=== PATIENT | male | born 1955 | race Caucasian/White ===

== ENCOUNTER 2016-07-31 13:48 | Emergency (ER) | payer OTHER ==
[~2016-07-31] VITALS: Ht 177.8 cm; Wt 81.6 kg
[~2016-07-31 13:48] MED LIST: ATENOLOL PO; ATORVASTATIN CA20 M1 PO; CELEXA20 MG PO; CHLORDIAZEPOXID10 M2 PO; GLUCOPHAGE1000 MG PO; GLUCOTROL5 MG PO; JARDIANCE25 MG PO; JENTADUETO 2.51 EAC2 PO; LANTUS100 U/ML SC; LYRICA50 MG PO; NALTREXONE50 MG PO; NEXIUM40 MG PO; PROZAC20 MG PO; TENORMIN50 MG PO; VICODIN ES 7501 TAB PO; ZESTRIL40 MG PO; [UNRECOGNIZED DRUG - OTHER] PO
[2016-07-31] MEDS ORDERED: PANTOPRAZOLE SO40 MG PO (14:17)
[2016-07-31] MEDS ORDERED: LYRICA50 M1 PO (14:18)
[2016-07-31 15:07] LABS: BASO # 0.1 10*3/uL (0.0-0.1); BASO % 0.3 % (0.0-1.0); EOS # 0.4 10*3/uL (0.0-0.4); EOS % 2.4 % (1.0-4.0); HEMATOCRIT 47.4 % (42.0-52.0); HEMOGLOBIN 16.1 g/dl (14.0-18.0); IG # 0.1 10*3/uL (0.0-0.1); LYMPH # 1.9 10*3/uL (1.3-4.4); LYMPH % 13.3 % (27.0-41.0); MEAN CORPUSCULAR HGB 29.5 pg (27.0-31.0); MEAN PLATELET VOLUME 10.4 fl (9.6-12.3); MONO % 6.7 % (3.0-9.0); NEUT # 11.2 10*3/uL (2.3-7.9); PLATELET COUNT AUTOMATED 275 10*3/uL (130-400); RED BLOOD COUNT 5.45 10*6/uL (4.50-5.90); RED CELL DISTRI WIDTH 13.5 % (0-14.5); WHITE BLOOD COUNT 14.5 10*3/uL (4.8-10.8)
[2016-07-31 15:24] LABS: ALBUMIN 4.1 gm/dl (3.1-4.5); ALKALINE PHOSPHATASE 109 U/L (45-117); BILIRUBIN, TOTAL 0.5 mg/dl (0.2-1.0); BUN 26 mg/dl (7-24); CARBON DIOXIDE 30 mmol/L (21-32); CHLORIDE 98 mmol/L (98-107); EST GLOM FILT AFRICAN AMERICAN > 60 ml/min; GLUCOSE 86 mg/dL (65-99); POTASSIUM 3.5 mmol/L (3.5-5.1); SGOT/AST 20 IU/L (3-35); SGPT/ALT 29 U/L (12-78); SODIUM 139 mmol/L (136-145); TOTAL PROTEIN 8.3 gm/dL (6.4-8.2)
[2016-07-31] MEDS ORDERED: CLINDAMYCIN HC300 MG PO (15:54)
[2016-07-31] MEDS ORDERED: PERCOCET 325 MG1 TA2 PO (15:54)
== END 2016-07-31 16:05 | disposition home or self-care (01) ==
LOC: ED 13:48
PROVIDERS: Physician Assistant
DX: L03.116 Cellulitis of left lower limb (principal); M25.572 Pain in left ankle and joints of left foot; Z79.899 Other long term (current) drug therapy; Z79.4 Long term (current) use of insulin; Z98.890 Other specified postprocedural states

== ENCOUNTER 2016-11-22 09:36 | Inpatient (IN) | payer OTHER ==
[~2016-11-22] VITALS: Ht 177.8 cm; Wt 83.1 kg
--- NOTE | ~2016-11-22 | CON ---
[place], [place] REPORT OF CONSULTATION NAME: CARLIN THOMAS JR [facility] #: [id number] UNIT #: [id number] ROOM: [place] [address] DOCTOR: TEO GALAVIZJOSSE BIRTHDATE: [birth year] DOS: 11/24/2016 SUBJECTIVE: This patient is seen as consulted for evaluation of a left posterior heel wound. Apparently, the patient had a ruptured Achilles tendon last year, underwent surgery for Achilles tendon repair. He subsequently had MRSA infection and needed further debridement and has needed long-term wound care. He sees a bi tri operator in [place] and apparently she has been doing and a wound VAC. He states he thinks his Achilles area is doing well. He states right now he is not feeling well in the room because his blood pressure is low. PAST MEDICAL HISTORY: Positive for Achilles tendon rupture; chronic wound, left posterior heel; depression; esophageal stricture; gastroesophageal reflux disease; hypertension; hyperlipidemia; insulin-dependent diabetes mellitus; and MRSA cellulitis. ALLERGIES: No known allergies. MEDICATIONS: Include Subutex, Librium, thiamine, Lyrica, Zestril, Trajenta, folic acid, Prozac, Lovenox, Lipitor, Tenormin, Protonix, Glucophage, Desyrel, Ativan. PHYSICAL EXAMINATION: Upon lower extremity physical examination, pedal pulses are palpable. CFT is less than 2 seconds to all digits. Skin temperature is warm. Sensation appears diminished in both lower extremities. Negative Lam sign is noted. On the left side, Achilles tendon appears to be grossly intact. Stiffness noted with range of motion. There is a wound noted at the left posterior heel in the area of the Achilles that is essentially partial thickness. It is about 4 cm in length and about 0.2 cm in width, may be 0.1 cm in depth. There is no edema or erythema, no drainage or malodor. The wound is dry and clean, with no signs of infections. No signs of cellulitis or abscess. ASSESSMENT: Chronic left posterior heel wounds and diabetes. PLAN: Consult is performed. We just recommend Adaptic and dry dressing to the wound at this time daily, that was discussed with the nurse. Offload the area and will follow him up as needed. The wound is stable with no infection. If there is any further need for us to see him, please let us know. If not, upon discharge, he will follow up with his regular bi tri operator. Thank you for the opportunity to take part in care of this patient. [place], [place] REPORT OF CONSULTATION NAME: MARTHA CARLIN MADRIGAL UNIT #: [id number] ROOM: [place] [address] DOCTOR: JOSSE BRUCE DPM BIRTHDATE: [birth year] JOSSE BRUCE DPM CM:CONSTR:REPORT OF CONSULTATION 1211 11/24/16 1416 interface
--- NOTE | ~2016-11-22 | CON ---
[place], [place] REPORT OF CONSULTATION NAME: CARLIN THOMAS JR UNIT #: [id number] ROOM: [place] [address] DOCTOR: CLARIBEL WALL MD BIRTHDATE: [birth year] DOS: 11/24/2016 GASTROENDOSCOPIC REPORT. HISTORY OF PRESENT ILLNESS: This is a 61-year-old patient who has presented with chief complaint of drug and alcohol issues and pain management and meanwhile, he has chronic esophageal stricture that has been repeatedly managed in [place]. He has been complaining of dysphagia, he tried a piece of hot dog today, he had difficulty. He had to induce his own emesis. Apparently, according to his and himself, this is very common for him that he has to induce emesis to get rid of solid particles at times. He was tried on ice cream and he had no difficulty. His labs and records reviewed. BUN and creatinine normal. Electrolytes, potassium was addressed. AST 60, ALT of 64 corresponding with his ETOH consumption. His urine culture, no growth. His CBC differential, white blood cell remains normal. H and H of 14 and 42. Chest x-ray was obtained today, either atelectasis or infiltrate in lung cannot be ruled out. BUN and creatinine 41 and 2.2 with GFR of 36. Electrolytes normalized. PAST MEDICAL HISTORY: Associated with esophageal stricture; depression; Achilles tendon rupture, on pain medication; hypertension; hyperlipidemia; diabetes mellitus; GERD. PAST SURGICAL HISTORY: Recurrent dilation of the esophagus, ____. SOCIAL HISTORY: Has stopped smoking several years ago; however, he continues with his alcohol habit and marijuana usage. FAMILY HISTORY: Diabetes. ALLERGIES: No known medications. MEDICATIONS: Medication list has been reviewed. REVIEW OF SYSTEMS: HEENT: Denies double vision, blurred vision. RESPIRATORY: Denies acute shortness of breath; however, has some cough. CARDIOVASCULAR: Denies chest pain. DIGESTIVE SYSTEM: Esophageal stricture and recurrent dilation. PHYSICAL EXAMINATION: VITAL SIGNS: Stable, in ICU, conversing. HEENT: Head normocephalic, nontraumatic. Mouth and buccal mucosa benign. NECK: Supple, no thyromegaly, no cervical lymphadenopathy. CHEST: Symmetric anatomy, equal expansion. No wheeze, no rhonchi at the present time. HEART: Normal sinus rhythm, no gallop, no murmur. ABDOMEN: Obese, soft. No hepato-organomegaly. Bowel sounds present. EXTREMITIES: Left ankle joint and tendons are in bandage and wrappings. [place], [place] REPORT OF CONSULTATION NAME: CARLIN THOMAS JR UNIT #: [id number] ROOM: [place] [address] DOCTOR: CLARIBEL WALL MD BIRTHDATE: [birth year] NEUROLOGIC: Appears to be alert and oriented. IMPRESSION: Chronic esophageal stricture and dysphagia to extreme solid food, status post recurrent dilation and foreign body entrapment, which has been managed in [place], history of diabetes mellitus, renal insufficiency, hypertension, hyperlipidemia, alcohol dependency and depression, all has been recognized. PLAN AND DISCUSSION: To keep on mechanical soft diet, ice cream, milk shake and consistency as such. As far as the infiltration that has been found in the lungs, clindamycin has been started; however, he does not have leukocytosis; therefore, we should favor also possibility of atelectasis to be the cause of that, suspected infiltrates in the benefit of preventing antibiotic complications. We are going to get a CT scan of the chest to make sure this is not pneumonia. If it is pneumonia, we will continue with antibiotics; it is atelectasis, we will discontinue antibiotic, so that we do not end up with clindamycin toxicity and C. diff complications as such. As far as his esophagus, dysphagia is concerned, he can follow as outpatient and as long as he stays on a pureed diet and soft diet. CLARIBEL WALL MD CM:CONSTR:REPORT OF CONSULTATION 1750 11/25/16 0325 interface
[~2016-11-22 09:36] MED LIST changes: +CLINDAMYCIN HC300 MG PO; +LYRICA50 M1 PO; +PANTOPRAZOLE SO40 MG PO; +PERCOCET 325 MG1 TA2 PO
[2016-11-22] MEDS ORDERED: LIPITOR20 MG PO (11:40)
[2016-11-22] MEDS ORDERED: FLUOXETINE40 MG PO (11:46)
[2016-11-22] MEDS ORDERED: JARDIANCE25 MG PO (11:51)
[2016-11-22] MEDS ORDERED: LANTUS100 U/ML SC ×2 (11:57→12:02)
[2016-11-22 12:00] VITALS: BP 143/76
[2016-11-22 12:13] LABS: BASO % 0.1 % (0.0-1.0); HEMATOCRIT 45.9 % (42.0-52.0); HEMOGLOBIN 16.2 g/dl (14.0-18.0); LYMPH # 1.4 10*3/uL (1.3-4.4); LYMPH % 17.4 % (27.0-41.0); MEAN CELL VOLUME 87.3 fl (80.0-94.0); MEAN CORPUSCULAR HGB 30.8 pg (27.0-31.0); MEAN CORPUSCULAR HGB CONC 35.3 g/dl (33.0-37.0); MEAN PLATELET VOLUME 9.6 fl (9.6-12.3); MONO # 0.9 10*3/uL (0.1-1.0); MONO % 11.3 % (3.0-9.0); NEUT # 5.8 10*3/uL (2.3-7.9); PLATELET COUNT AUTOMATED 224 10*3/uL (130-400); RED BLOOD COUNT 5.26 10*6/uL (4.50-5.90); RED CELL DISTRI WIDTH 14.6 % (0-14.5); WHITE BLOOD COUNT 8.2 10*3/uL (4.8-10.8)
[2016-11-22 12:21] LABS: INTERNATIONAL NORM RATIO 1.1 (2.0-3.5); PROTHROMBIN TIME 11.2 SECONDS (9.0-12.4)
[2016-11-22 12:22] LABS: URINE AMPHETAMINES < 1000 (1000ng/ml); URINE BARBITURATES < 200 (200ng/ml); URINE COCAINE < 300 (300ng/ml)
[2016-11-22 12:29] LABS: ALBUMIN 3.7 gm/dl (3.1-4.5); ALKALINE PHOSPHATASE 111 U/L (45-117); BILIRUBIN, TOTAL 1.6 mg/dl (0.2-1.0); BUN 26 mg/dl (7-24); CARBON DIOXIDE 26 mmol/L (21-32); CHLORIDE 93 mmol/L (98-107); EST GLOM FILT AFRICAN AMERICAN > 60 ml/min; GLUCOSE 242 mg/dL (65-99); SGOT/AST 60 IU/L (3-35); SGPT/ALT 64 U/L (12-78); SODIUM 133 mmol/L (136-145); TOTAL PROTEIN 7.9 gm/dL (6.4-8.2)
[2016-11-22 12:29] LABS: BILIRUBIN 2+ (NEGATIVE); BLOOD 1+ (NEGATIVE); CLARITY CLEAR (CLEAR); COLOR YELLOW (YELLOW); GLUCOSE 2+ (NEGATIVE); KETONE 3+ (NEGATIVE); LEUKO ESTERASE NEGATIVE (NEGATIVE); NITRITE NEGATIVE (NEGATIVE); PROTEIN 2+ (NEGATIVE); SPECIFIC GRAVITY 1.015 (1.005-1.030)
[2016-11-22 12:56] LABS: URINE REFLEX COMMENT YES (NO)
[2016-11-22] MEDS ORDERED: REGRANEX 0.01% T (14:55)
[2016-11-22 16:00] VITALS: BP 170/93
[2016-11-22 20:00] VITALS: BP 141/86
[2016-11-23] VITALS: BP 114/67
[2016-11-23 04:00] VITALS: BP 116/62
[2016-11-23 08:00] VITALS: BP 106/66
[2016-11-23 12:00] VITALS: BP 96/59
[2016-11-23 16:00] VITALS: BP 78/60
[2016-11-23 20:00] VITALS: BP 83/62
[2016-11-24] VITALS (20 sets, daily range): BP systolic 74–123; BP diastolic 42–92
[2016-11-24 12:33] LABS: ABG BASE EXCESS 0.3 mmol/L (-2.0-2.0); ABG CO2 CONTENT 28.3 mmol/L (23-27); ABG HCO3 26.7 mmol/l (22-26); ABG TEMPERATURE 97.2 F (98.0-99.0); ARTERIAL BLOOD GAS PH 7.338 (7.35-7.45); ARTERIAL BLOOD GAS PO2 49.3 mmHg (80-90)
[2016-11-24 16:20] LABS: BASO % 0.4 % (0.0-1.0); EOS # 0.2 10*3/uL (0.0-0.4); EOS % 2.9 % (1.0-4.0); HEMATOCRIT 42.6 % (42.0-52.0); HEMOGLOBIN 14.5 g/dl (14.0-18.0); LYMPH # 1.7 10*3/uL (1.3-4.4); LYMPH % 20.1 % (27.0-41.0); MEAN CELL VOLUME 91.8 fl (80.0-94.0); MEAN CORPUSCULAR HGB 31.3 pg (27.0-31.0); MEAN PLATELET VOLUME 9.9 fl (9.6-12.3); MONO # 0.7 10*3/uL (0.1-1.0); MONO % 8.4 % (3.0-9.0); NEUT # 5.6 10*3/uL (2.3-7.9); NEUT % 67.8 % (47.0-73.0); PLATELET COUNT AUTOMATED 174 10*3/uL (130-400); RED BLOOD COUNT 4.64 10*6/uL (4.50-5.90); RED CELL DISTRI WIDTH 14.2 % (0-14.5); WHITE BLOOD COUNT 8.3 10*3/uL (4.8-10.8)
[2016-11-24 16:50] LABS: ALBUMIN 3.4 gm/dl (3.1-4.5); BILIRUBIN, TOTAL 0.5 mg/dl (0.2-1.0); POTASSIUM 3.9 mmol/L (3.5-5.1); TOTAL PROTEIN 7.1 gm/dL (6.4-8.2)
[2016-11-25] VITALS (7 sets, daily range): BP systolic 97–127; BP diastolic 53–73
[2016-11-25 04:56] LABS: BASO % 0.4 % (0.0-1.0); EOS # 0.3 10*3/uL (0.0-0.4); EOS % 3.8 % (1.0-4.0); HEMOGLOBIN 12.9 g/dl (14.0-18.0); LYMPH # 1.9 10*3/uL (1.3-4.4); LYMPH % 26.8 % (27.0-41.0); MEAN CELL VOLUME 91.6 fl (80.0-94.0); MEAN CORPUSCULAR HGB 31.1 pg (27.0-31.0); MEAN CORPUSCULAR HGB CONC 33.9 g/dl (33.0-37.0); MEAN PLATELET VOLUME 9.7 fl (9.6-12.3); MONO # 0.6 10*3/uL (0.1-1.0); MONO % 8.5 % (3.0-9.0); NEUT # 4.2 10*3/uL (2.3-7.9); NEUT % 60.2 % (47.0-73.0); PLATELET COUNT AUTOMATED 146 10*3/uL (130-400); RED BLOOD COUNT 4.15 10*6/uL (4.50-5.90); RED CELL DISTRI WIDTH 14.1 % (0-14.5); WHITE BLOOD COUNT 6.9 10*3/uL (4.8-10.8)
[2016-11-25 05:24] LABS: BUN 31 mg/dl (7-24); CARBON DIOXIDE 29 mmol/L (21-32); CHLORIDE 101 mmol/L (98-107); EST GLOM FILT AFRICAN AMERICAN > 60 ml/min; GLUCOSE 187 mg/dL (65-99); POTASSIUM 3.5 mmol/L (3.5-5.1); SODIUM 138 mmol/L (136-145)
[2016-11-26] VITALS: BP 127/60
[2016-11-26 06:18] LABS: BASO % 0.5 % (0.0-1.0); EOS # 0.2 10*3/uL (0.0-0.4); EOS % 5.8 % (1.0-4.0); HEMATOCRIT 39.3 % (42.0-52.0); HEMOGLOBIN 13.6 g/dl (14.0-18.0); LYMPH # 1.5 10*3/uL (1.3-4.4); LYMPH % 40.6 % (27.0-41.0); MEAN CELL VOLUME 89.7 fl (80.0-94.0); MEAN CORPUSCULAR HGB 31.1 pg (27.0-31.0); MEAN CORPUSCULAR HGB CONC 34.6 g/dl (33.0-37.0); MEAN PLATELET VOLUME 10.3 fl (9.6-12.3); MONO # 0.4 10*3/uL (0.1-1.0); MONO % 11.1 % (3.0-9.0); NEUT # 1.6 10*3/uL (2.3-7.9); NEUT % 41.5 % (47.0-73.0); PLATELET COUNT AUTOMATED 155 10*3/uL (130-400); RED BLOOD COUNT 4.38 10*6/uL (4.50-5.90); RED CELL DISTRI WIDTH 13.9 % (0-14.5); WHITE BLOOD COUNT 3.8 10*3/uL (4.8-10.8)
[2016-11-26 06:34] LABS: GLUCOSE 218 mg/dL (65-99)
[2016-11-26 06:35] LABS: BUN 12 mg/dl (7-24); CARBON DIOXIDE 29 mmol/L (21-32); CHLORIDE 103 mmol/L (98-107); EST GLOM FILT AFRICAN AMERICAN > 60 ml/min; POTASSIUM 4.1 mmol/L (3.5-5.1); SODIUM 139 mmol/L (136-145)
[2016-11-26 08:00] VITALS: BP 158/74
== END 2016-11-26 10:51 | disposition home health service (06) | DRG 896 ==
LOC: 4E 09:36 → ICCU 11-24 12:19 → 4E 11-25 17:38
PROVIDERS: Internal Medicine; Student in an Organized Health Care Education/Training Program
DX: F10.230 Alcohol dependence with withdrawal, uncomplicated (principal); J96.01 Acute respiratory failure with hypoxia; F11.23 Opioid dependence with withdrawal; N17.0 Acute kidney failure with tubular necrosis; I95.9 Hypotension, unspecified; J96.02 Acute respiratory failure with hypercapnia; E11.65 Type 2 diabetes mellitus with hyperglycemia; E87.1 Hypo-osmolality and hyponatremia; F33.9 Major depressive disorder, recurrent, unspecified; I10 Essential (primary) hypertension; E78.5 Hyperlipidemia, unspecified; K21.9 Gastro-esophageal reflux disease without esophagitis; E87.6 Hypokalemia; R74.0 Nonspecific elevation of levels of transaminase and lactic acid dehydrogenase [LDH]; G25.1 Drug-induced tremor; R00.1 Bradycardia, unspecified; K22.2 Esophageal obstruction; Z79.4 Long term (current) use of insulin; Z79.899 Other long term (current) drug therapy; Z83.3 Family history of diabetes mellitus; Z82.49 Family history of ischemic heart disease and other diseases of the circulatory system

== ENCOUNTER 2017-10-31 12:07 | Emergency (ER) | payer OTHER ==
[~2017-10-31] VITALS: Ht 177.8 cm; Wt 86.2 kg
--- NOTE | ~2017-10-31 | EKG ---
[place], [place] ELECTROCARDIOGRAM REPORT NAME: CARLIN THOMAS JR UNIT #: [id number] ROOM: DOCTOR: EPIPHANY DRAFT REPORT BIRTHDATE: [birth year] [facility] Test Date: 2017-10-31 Test Time: 12:42:17 Pat Name: CARLIN THOMAS Department: Room: Gender: M Tire Assembler: : 1955 Requested By: MAT ALBERT PA-C Order Number: [id number] Reading MD: Lina Villarreal MD Measurements Intervals [place] Rate: 94 P: 47 SD: 168 QRS: -41 QRSD: 97 T: 5 QT: 355 QTc: 444 Interpretive Statements Sinus rhythm Left anterior fascicular block Abnormal R-wave progression, late transition Borderline T wave abnormalities Electronically Signed On 11-02-2017 11:04:25 PDT by Lina Villarreal MD CM:EKGRPT:ELECTROCARDIOGRAM REPORT 1242 1104 MAT ALBERT PA-C EPIPHANY DRAFT REPORT MAT ALBERT PA-C
[~2017-10-31 12:07] MED LIST changes: +FLUOXETINE40 MG PO; +LANTUS SOL100 UNIT/1 SC; +LIPITOR20 MG PO; +REGRANEX 0.01% T
[2017-10-31 12:51] LABS: BASO # 0.1 10*3/uL (0.0-0.1); EOS # 0.2 10*3/uL (0.0-0.4); EOS % 2.5 % (1.0-4.0); HEMATOCRIT 47.4 % (42.0-52.0); LYMPH # 2.6 10*3/uL (1.3-4.4); MEAN CELL VOLUME 89.6 fl (80.0-94.0); MEAN CORPUSCULAR HGB 30.2 pg (27.0-31.0); MEAN CORPUSCULAR HGB CONC 33.8 g/dl (33.0-37.0); MEAN PLATELET VOLUME 10.1 fl (9.6-12.3); MONO # 0.5 10*3/uL (0.1-1.0); MONO % 7.2 % (3.0-9.0); NEUT # 3.7 10*3/uL (2.3-7.9); NEUT % 51.9 % (47.0-73.0); PLATELET COUNT AUTOMATED 261 10*3/uL (130-400); RED BLOOD COUNT 5.29 10*6/uL (4.50-5.90); RED CELL DISTRI WIDTH 14.1 % (0-14.5); WHITE BLOOD COUNT 7.1 10*3/uL (4.8-10.8)
[2017-10-31 13:05] LABS: URINE AMPHETAMINES < 1000 (1000ng/ml); URINE BARBITURATES < 200 (200ng/ml); URINE BENZODIAZEPINES < 200 (200ng/ml); URINE CANNABINOIDS (THC) < 50 (50ng/ml); URINE COCAINE < 300 (300ng/ml); URINE METHADONE < 300 (300ng/ml); URINE OPIATES < 300 (300ng/ml)
[2017-10-31 13:06] LABS: URINE PHENCYCLIDINE < 25 (25ng/ml)
[2017-10-31 13:06] LABS: ALKALINE PHOSPHATASE 97 U/L (45-117); BUN 11 mg/dl (7-24); CHLORIDE 101 mmol/L (98-107); CREATININE 1.07 mg/dL (0.70-1.30); POTASSIUM 3.9 mmol/L (3.5-5.1); SGOT/AST 56 IU/L (3-35); SGPT/ALT 80 U/L (12-78); SODIUM 138 mmol/L (136-145); TOTAL PROTEIN 7.7 gm/dL (6.4-8.2)
[2017-10-31] MEDS ORDERED: ZANTAC 150150 MG PO (15:01)
== END 2017-10-31 15:50 ==
LOC: ED 12:07
PROVIDERS: Physician Assistant
DX: F10.129 Alcohol abuse with intoxication, unspecified (principal); F11.10 Opioid abuse, uncomplicated; F12.90 Cannabis use, unspecified, uncomplicated; Z79.899 Other long term (current) drug therapy; Z98.890 Other specified postprocedural states; Y90.9 Presence of alcohol in blood, level not specified

== ENCOUNTER 2017-10-31 13:13 | Inpatient (IN) | payer OTHER ==
[~2017-10-31] VITALS: Ht 177.8 cm; Wt 92.1 kg
[2017-10-31] MEDS ORDERED: ZANTAC 150150 MG PO (15:01)
[2017-10-31 15:55] VITALS: BP 141/81
[2017-10-31 20:00] VITALS: BP 121/62
[2017-11-01] VITALS: BP 125/65
[2017-11-01 04:00] VITALS: BP 142/81
[2017-11-01 05:46] LABS: ALBUMIN 3.6 gm/dl (3.1-4.5); ALKALINE PHOSPHATASE 98 U/L (45-117); BUN 12 mg/dl (7-24); CHLORIDE 103 mmol/L (98-107); CHOLESTEROL 184 mg/dL (<200); CREATININE 0.89 mg/dL (0.70-1.30); FREE T4 0.78 ng/dl (0.76-1.46); HDL CHOLESTEROL 50 mg/dl (40-60); LDL CHOLESTEROL 81 mg/dL (9-159); PHOSPHOROUS 2.6 mg/dL (2.5-4.9); POTASSIUM 3.7 mmol/L (3.5-5.1); SGOT/AST 61 IU/L (3-35); SGPT/ALT 80 U/L (12-78); SODIUM 140 mmol/L (136-145); TRIGLYCERIDES 263 mg/dl (<150); VLDL CHOLESTEROL 53 mg/dL (6-40)
[2017-11-01 05:51] LABS: THYROID STIM HORMONE (HS) 0.872 uIU/ml (0.358-4.75)
[2017-11-01 06:09] LABS: BASO # 0.1 10*3/uL (0.0-0.1); BASO % 1.3 % (0.0-1.0); EOS # 0.3 10*3/uL (0.0-0.4); EOS % 4.7 % (1.0-4.0); HEMATOCRIT 44.4 % (42.0-52.0); HEMOGLOBIN 14.7 g/dl (14.0-18.0); LYMPH # 2.1 10*3/uL (1.3-4.4); LYMPH % 35.5 % (27.0-41.0); MEAN CELL VOLUME 90.1 fl (80.0-94.0); MEAN CORPUSCULAR HGB 29.8 pg (27.0-31.0); MEAN CORPUSCULAR HGB CONC 33.1 g/dl (33.0-37.0); MEAN PLATELET VOLUME 10.1 fl (9.6-12.3); MONO # 0.7 10*3/uL (0.1-1.0); MONO % 12.1 % (3.0-9.0); NEUT # 2.8 10*3/uL (2.3-7.9); NEUT % 46.1 % (47.0-73.0); PLATELET COUNT AUTOMATED 203 10*3/uL (130-400); RED BLOOD COUNT 4.93 10*6/uL (4.50-5.90); RED CELL DISTRI WIDTH 13.7 % (0-14.5)
[2017-11-01 07:53] LABS: VITAMIN D, 25-HYDROXY 18.4 ng/mL (30-100)
[2017-11-01 08:00] VITALS: BP 148/88
[2017-11-01 12:00] VITALS: BP 166/92
[2017-11-01 16:00] VITALS: BP 156/89
[2017-11-01 20:00] VITALS: BP 162/90
[2017-11-02] VITALS: BP 158/84
[2017-11-02 04:00] VITALS: BP 160/88
[2017-11-02 05:06] LABS: ALBUMIN 3.2 gm/dl (3.1-4.5); ALKALINE PHOSPHATASE 117 U/L (45-117); BUN 17 mg/dl (7-24); CHLORIDE 105 mmol/L (98-107); CREATININE 0.77 mg/dL (0.70-1.30); POTASSIUM 3.4 mmol/L (3.5-5.1); SGOT/AST 78 IU/L (3-35); SGPT/ALT 99 U/L (12-78); SODIUM 140 mmol/L (136-145); TOTAL PROTEIN 6.3 gm/dL (6.4-8.2)
[2017-11-02 08:00] VITALS: BP 160/91
[2017-11-02 12:00] VITALS: BP 157/93
[2017-11-02 16:00] VITALS: BP 141/78
[2017-11-02 20:00] VITALS: BP 130/82
[2017-11-03 00:01] VITALS: BP 128/80
[2017-11-03 03:57] VITALS: BP 122/68
[2017-11-03 07:52] LABS: ALBUMIN 3.3 gm/dl (3.1-4.5); ALKALINE PHOSPHATASE 83 U/L (45-117); BUN 12 mg/dl (7-24); CHLORIDE 106 mmol/L (98-107); CREATININE 0.79 mg/dL (0.70-1.30); POTASSIUM 3.6 mmol/L (3.5-5.1); SGOT/AST 76 IU/L (3-35); SGPT/ALT 100 U/L (12-78); SODIUM 142 mmol/L (136-145); TOTAL PROTEIN 6.7 gm/dL (6.4-8.2)
[2017-11-03 08:00] VITALS: BP 160/84
[2017-11-03] MEDS ORDERED: JENTADUETO 2.51 EAC2 PO (11:41)
[2017-11-03 12:00] VITALS: BP 140/80
[2017-11-03 16:00] VITALS: BP 161/88
[2017-11-03 20:00] VITALS: BP 152/101
[2017-11-04] VITALS: BP 141/64
[2017-11-04 06:54] LABS: BASO # 0.1 10*3/uL (0.0-0.1); BASO % 0.7 % (0.0-1.0); EOS # 0.3 10*3/uL (0.0-0.4); EOS % 4.2 % (1.0-4.0); HEMATOCRIT 45.3 % (42.0-52.0); HEMOGLOBIN 14.9 g/dl (14.0-18.0); LYMPH # 2.1 10*3/uL (1.3-4.4); MEAN CELL VOLUME 90.6 fl (80.0-94.0); MEAN CORPUSCULAR HGB 29.8 pg (27.0-31.0); MEAN CORPUSCULAR HGB CONC 32.9 g/dl (33.0-37.0); MEAN PLATELET VOLUME 10.5 fl (9.6-12.3); MONO # 0.7 10*3/uL (0.1-1.0); MONO % 10.4 % (3.0-9.0); NEUT # 3.6 10*3/uL (2.3-7.9); NEUT % 53.3 % (47.0-73.0); PLATELET COUNT AUTOMATED 172 10*3/uL (130-400); RED CELL DISTRI WIDTH 13.7 % (0-14.5); WHITE BLOOD COUNT 6.7 10*3/uL (4.8-10.8)
[2017-11-04 08:00] VITALS: BP 159/61
[2017-11-04 12:00] VITALS: BP 164/84
[2017-11-04 16:00] VITALS: BP 143/80
[2017-11-04 20:00] VITALS: BP 160/87
[2017-11-05] VITALS: BP 138/82
[2017-11-05 08:00] VITALS: BP 148/78
[2017-11-05] MEDS ORDERED: LISINOPRIL20 MG PO (12:05)
[2017-11-05] MEDS ORDERED: VITAMIN D-32000 UNI1 PO (12:05)
[2017-11-05] MEDS ORDERED: ATARAX,VISTARIL50 MG PO (12:05)
[2017-11-05] MEDS ORDERED: HYDR12.5C PO (12:05)
[2017-11-05 14:00] VITALS: BP 166/88
== END 2017-11-05 14:24 | disposition home or self-care (01) | DRG 392 ==
LOC: EDHOLD 13:13 → ICCU 13:13 → 4E 11-03 15:25
PROVIDERS: Family Medicine; Internal Medicine; Registered Nurse
DX: K21.9 Gastro-esophageal reflux disease without esophagitis (principal); E11.9 Type 2 diabetes mellitus without complications; F10.239 Alcohol dependence with withdrawal, unspecified; R11.0 Nausea; I10 Essential (primary) hypertension; F10.229 Alcohol dependence with intoxication, unspecified; R74.0 Nonspecific elevation of levels of transaminase and lactic acid dehydrogenase [LDH]; E78.5 Hyperlipidemia, unspecified; F12.90 Cannabis use, unspecified, uncomplicated; R29.6 Repeated falls; F32.9 Major depressive disorder, single episode, unspecified; Z91.81 History of falling; Z79.4 Long term (current) use of insulin; Z87.01 Personal history of pneumonia (recurrent); Z86.14 Personal history of Methicillin resistant Staphylococcus aureus infection; Z82.49 Family history of ischemic heart disease and other diseases of the circulatory system; Z83.3 Family history of diabetes mellitus; Z79.899 Other long term (current) drug therapy

== ENCOUNTER 2018-02-16 19:30 | Emergency (ER) | payer OTHER ==
[~2018-02-16] VITALS: Wt 99.8 kg
--- NOTE | ~2018-02-16 | EKG ---
[place], [place] ELECTROCARDIOGRAM REPORT NAME: CARLIN THOMAS JR UNIT #: [id number] ROOM: DOCTOR: EPIPHANY DRAFT REPORT BIRTHDATE: [birth year] [facility] Test Date: 2018-02-16 Test Time: 21:38:54 Pat Name: CARLIN THOMAS Department: Room: [facility] Gender: M Underground Utility Locator: 10 : 1955 Requested By: BALDEMAR DIGGS Order Number: [id number] Reading MD: Linette Toledo MD Measurements Intervals [place] Rate: 88 P: 34 MD: 175 QRS: -35 QRSD: 88 T: -20 QT: 387 QTc: 469 Interpretive Statements Sinus rhythm Consider left atrial enlargement Left ventricular hypertrophy Borderline T abnormalities, inferior leads Baseline wander in lead(s) III Compared to ECG 10/31/2017 12:42:17 Left ventricular hypertrophy now present Left anterior fascicular block no longer present T-wave abnormality still present Electronically Signed On 02-17-2018 15:30:06 PST by Linette Toledo MD CM:EKGRPT:ELECTROCARDIOGRAM REPORT 1530 BALDEMAR DIGGS EPIPHANY DRAFT REPORT BALDEMAR DIGGS
[~2018-02-16 19:30] MED LIST changes: +ATARAX,VISTARIL50 MG PO; +HYDR12.5C PO; +LISINOPRIL20 MG PO; +VITAMIN D-32000 UNI1 PO; +ZANTAC 150150 MG PO
[2018-02-16 20:01] LABS: HEMATOCRIT 50.3 % (42.0-52.0); MEAN CELL VOLUME 89.2 fl (80.0-94.0); MEAN CORPUSCULAR HGB 30.1 pg (27.0-31.0); MEAN CORPUSCULAR HGB CONC 33.8 g/dl (33.0-37.0); MEAN PLATELET VOLUME 9.9 fl (9.6-12.3); PLATELET COUNT AUTOMATED 274 10*3/uL (130-400); RED BLOOD COUNT 5.64 10*6/uL (4.50-5.90); RED CELL DISTRI WIDTH 14.3 % (0-14.5); WHITE BLOOD COUNT 9.2 10*3/uL (4.8-10.8)
[2018-02-16 20:17] LABS: ALBUMIN 4.1 gm/dl (3.1-4.5); ALKALINE PHOSPHATASE 91 U/L (45-117); BUN 18 mg/dl (7-24); CHLORIDE 98 mmol/L (98-107); CREATININE 1.03 mg/dL (0.70-1.30); POTASSIUM 3.8 mmol/L (3.5-5.1); SGOT/AST 51 IU/L (3-35); SGPT/ALT 102 U/L (12-78); SODIUM 137 mmol/L (136-145); TOTAL PROTEIN 8.3 gm/dL (6.4-8.2)
[2018-02-16 20:19] LABS: BILIRUBIN NEGATIVE (NEGATIVE); BLOOD NEGATIVE (NEGATIVE); CLARITY CLEAR (CLEAR); COLOR YELLOW (YELLOW); GLUCOSE 3+ (NEGATIVE); KETONE 2+ (NEGATIVE); LEUKO ESTERASE NEGATIVE (NEGATIVE); NITRITE NEGATIVE (NEGATIVE); UROBILINOGEN 0.2 E.U./dl (0.2-1.0)
[2018-02-16 20:19] LABS: ACETAMINOPHEN (TYLENOL) < 5.0 ug/ml (10-30)
[2018-02-16 20:20] LABS: ETHYL ALCOHOL < 3.0 mg/dl (<3)
[2018-02-16 20:29] LABS: BACTERIA TRACE; EPITHELIAL CELLS 0-2; WBC 0-2 wbc/hpf (0-5)
[2018-02-16 20:30] LABS: TOTAL CELLS COUNTED 100 #CELLS
[2018-02-16 20:31] LABS: PLATELET SUFFICIENCY NORMAL (NORMAL); POLYCHROMASIA SLIGHT
[2018-02-16 20:33] LABS: URINE BARBITURATES < 200 (200ng/ml); URINE BENZODIAZEPINES < 200 (200ng/ml); URINE CANNABINOIDS (THC) < 50 (50ng/ml); URINE COCAINE > 300 (300ng/ml); URINE METHADONE < 300 (300ng/ml); URINE OPIATES < 300 (300ng/ml)
[2018-02-16 20:37] LABS: URINE AMPHETAMINES < 1000 (1000ng/ml)
[2018-02-16 20:41] LABS: URINE PHENCYCLIDINE < 25 (25ng/ml)
[2018-02-17] MEDS ORDERED: ZESTRIL40 MG PO (08:52)
== END 2018-02-16 22:40 ==
LOC: ED 19:30
PROVIDERS: Nurse Practitioner Family
DX: F19.10 Other psychoactive substance abuse, uncomplicated (principal); F10.239 Alcohol dependence with withdrawal, unspecified; K21.9 Gastro-esophageal reflux disease without esophagitis; I10 Essential (primary) hypertension; E11.9 Type 2 diabetes mellitus without complications; E78.5 Hyperlipidemia, unspecified; Z79.899 Other long term (current) drug therapy; Y90.9 Presence of alcohol in blood, level not specified

== ENCOUNTER 2018-02-16 22:08 | Inpatient (IN) | payer OTHER ==
[~2018-02-16] VITALS: Ht 177.8 cm; Wt 91.4 kg
--- NOTE | ~2018-02-16 | EKG ---
[place], [place] ELECTROCARDIOGRAM REPORT NAME: CARLIN THOMAS JR UNIT #: [id number] ROOM: 525 DOCTOR: ROGELIO DRAFT REPORT BIRTHDATE: [birth year] [facility] Test Date: 2018-02-17 Test Time: 16:08:05 Pat Name: CARLIN THOMAS Department: Room: [facility] 1 Gender: M Gas Line Repairer: DIXON : 1955 Requested By: DONNY MICHELLE Order Number: [id number] Reading MD: Linette Toledo MD Measurements Intervals [place] Rate: 69 P: 30 IL: 176 QRS: -31 QRSD: 92 T: -4 QT: 488 QTc: 523 Interpretive Statements Sinus rhythm Low voltage, precordial leads Left ventricular hypertrophy Prolonged QT interval Baseline wander in lead(s) V2 Compared to ECG 10/31/2017 12:42:17 Low QRS voltage now present Left ventricular hypertrophy now present Prolonged QT interval now present Left anterior fascicular block no longer present T-wave abnormality no longer present Electronically Signed On 02-17-2018 15:40:20 PST by Linette Toledo MD CM:EKGRPT:ELECTROCARDIOGRAM REPORT 1608 1540 DONNY HUNT DRAFT REPORT DONNY MICHELLE DO
[2018-02-16 22:44] VITALS: BP 164/88
[2018-02-17 08:00] VITALS: BP 156/80
[2018-02-17] MEDS ORDERED: ZESTRIL40 MG PO (08:52)
[2018-02-17 12:00] VITALS: BP 138/74
[2018-02-17 16:00] VITALS: BP 124/72
[2018-02-17 20:00] VITALS: BP 128/76
[2018-02-18] VITALS: BP 106/63
[2018-02-18] MEDS ORDERED: SERTRALINE HYDR25 MG PO (00:34)
[2018-02-18] MEDS ORDERED: METFORMIN HYD1000 MG PO (00:35)
[2018-02-18 06:57] LABS: ACT PARTIAL THROMBO TIME 23.9 SECONDS (20.8-31.5); BASO % 0.8 % (0.0-1.0); BUN 19 mg/dl (7-24); CHLORIDE 102 mmol/L (98-107); CHOLESTEROL 147 mg/dL (<200); CREATININE 0.71 mg/dL (0.70-1.30); EOS # 0.2 10*3/uL (0.0-0.4); EOS % 3.6 % (1.0-4.0); HDL CHOLESTEROL 46 mg/dl (40-60); LDL CHOLESTEROL 43 mg/dL (9-159); LYMPH # 1.9 10*3/uL (1.3-4.4); LYMPH % 37.7 % (27.0-41.0); MEAN CELL VOLUME 89.8 fl (80.0-94.0); MEAN CORPUSCULAR HGB 29.9 pg (27.0-31.0); MEAN CORPUSCULAR HGB CONC 33.3 g/dl (33.0-37.0); MEAN PLATELET VOLUME 10.4 fl (9.6-12.3); MONO # 0.5 10*3/uL (0.1-1.0); MONO % 9.3 % (3.0-9.0); NEUT # 2.4 10*3/uL (2.3-7.9); NEUT % 48.2 % (47.0-73.0); PHOSPHOROUS 2.6 mg/dL (2.5-4.9); POTASSIUM 3.4 mmol/L (3.5-5.1); RED BLOOD COUNT 4.88 10*6/uL (4.50-5.90); RED CELL DISTRI WIDTH 13.9 % (0-14.5); SODIUM 138 mmol/L (136-145); TRIGLYCERIDES 292 mg/dl (<150); VLDL CHOLESTEROL 58 mg/dL (6-40)
[2018-02-18 07:03] LABS: HEMATOCRIT 43.8 % (42.0-52.0); HEMOGLOBIN 14.6 g/dl (14.0-18.0); PLATELET COUNT AUTOMATED 155 10*3/uL (130-400); THYROID STIM HORMONE (HS) 0.894 uIU/ml (0.358-4.75)
[2018-02-18 08:00] VITALS: BP 112/69
[2018-02-18 12:00] VITALS: BP 129/69
[2018-02-18 16:00] VITALS: BP 113/60
[2018-02-18 20:00] VITALS: BP 115/60
[2018-02-19 06:44] LABS: BUN 17 mg/dl (7-24); CHLORIDE 105 mmol/L (98-107); CREATININE 0.78 mg/dL (0.70-1.30); POTASSIUM 3.6 mmol/L (3.5-5.1); SODIUM 139 mmol/L (136-145)
[2018-02-19 08:00] VITALS: BP 128/74
[2018-02-19 12:00] VITALS: BP 148/81
[2018-02-19 16:00] VITALS: BP 139/77
[2018-02-20] VITALS: BP 112/57
[2018-02-20 08:00] VITALS: BP 147/86
[2018-02-20] MEDS ORDERED: VITAMIN D-32000 UNIT PO (13:19)
[2018-02-20] MEDS ORDERED: NATURE'S BLEND F1 MG PO (13:19)
[2018-02-20] MEDS ORDERED: TRAD5TAB1 PO (13:19)
[2018-02-20] MEDS ORDERED: NATURE'S BLEND100 M2 PO (13:19)
== END 2018-02-20 14:34 | disposition home or self-care (01) | DRG 897 ==
LOC: EDHOLD 22:08 → 5E 22:08
PROVIDERS: Student in an Organized Health Care Education/Training Program
DX: F10.230 Alcohol dependence with withdrawal, uncomplicated (principal); K22.2 Esophageal obstruction; F14.10 Cocaine abuse, uncomplicated; F19.10 Other psychoactive substance abuse, uncomplicated; R74.0 Nonspecific elevation of levels of transaminase and lactic acid dehydrogenase [LDH]; I10 Essential (primary) hypertension; E78.5 Hyperlipidemia, unspecified; E11.9 Type 2 diabetes mellitus without complications; K21.9 Gastro-esophageal reflux disease without esophagitis; F32.9 Major depressive disorder, single episode, unspecified; G25.1 Drug-induced tremor; R13.10 Dysphagia, unspecified; T50.995A Adverse effect of other drugs, medicaments and biological substances, initial encounter; Y92.89 Other specified places as the place of occurrence of the external cause; Z79.4 Long term (current) use of insulin; Z83.3 Family history of diabetes mellitus; Z82.49 Family history of ischemic heart disease and other diseases of the circulatory system; Z79.899 Other long term (current) drug therapy

== ENCOUNTER 2018-08-15 16:43 | Emergency (ER) | payer OTHER ==
[~2018-08-15] VITALS: Ht 177.8 cm; Wt 83.9 kg
--- NOTE | ~2018-08-15 | EKG ---
[place], [place] ELECTROCARDIOGRAM REPORT NAME: CARLIN THOMAS JR UNIT #: [id number] ROOM: DOCTOR: EPIPHANY DRAFT REPORT BIRTHDATE: [birth year] [facility] Test Date: 2018-08-15 Test Time: 17:36:06 Pat Name: CARLIN THOMAS Department: Room: Gender: M Roving Hand: Sara Byrd : 1955 Requested By: MAT ALBERT PA-C Order Number: [id number] Reading MD: Lina Villarreal MD Measurements Intervals [place] Rate: 84 P: -6 MD: 155 QRS: -34 QRSD: 92 T: 18 QT: 383 QTc: 453 Interpretive Statements Sinus rhythm Left ventricular hypertrophy Baseline wander in lead(s) V2 Compared to ECG 02/17/2018 16:08:05 Prolonged QT interval no longer present Electronically Signed On 08-16-2018 9:43:11 PDT by Lina Villarreal MD CM:EKGRPT:ELECTROCARDIOGRAM REPORT 1736 0943 MAT ALBERT PA-C EPIPHANY DRAFT REPORT MAT ALBERT PA-C
[~2018-08-15 16:43] MED LIST changes: +METFORMIN HYD1000 MG PO; +NATURE'S BLEND F1 MG PO; +NATURE'S BLEND100 M2 PO; +SERTRALINE HYDR25 MG PO; +TRAD5TAB1 PO; +VITAMIN D-32000 UNIT PO
[2018-08-15 17:15] LABS: BASO # 0.1 10*3/uL (0.0-0.1); BASO % 0.9 % (0.0-1.0); EOS # 0.2 10*3/uL (0.0-0.4); HEMATOCRIT 47.5 % (42.0-52.0); HEMOGLOBIN 16.2 g/dl (14.0-18.0); LYMPH % 35.8 % (27.0-41.0); MEAN CELL VOLUME 91.5 fl (80.0-94.0); MEAN CORPUSCULAR HGB 31.2 pg (27.0-31.0); MEAN CORPUSCULAR HGB CONC 34.1 g/dl (33.0-37.0); MONO # 0.8 10*3/uL (0.1-1.0); MONO % 9.9 % (3.0-9.0); NEUT # 4.3 10*3/uL (2.3-7.9); PLATELET COUNT AUTOMATED 239 10*3/uL (130-400); RED BLOOD COUNT 5.19 10*6/uL (4.50-5.90); RED CELL DISTRI WIDTH 13.5 % (0-14.5); WHITE BLOOD COUNT 8.5 10*3/uL (4.8-10.8)
[2018-08-15 17:37] LABS: ALBUMIN 3.9 gm/dl (3.1-4.5); ALKALINE PHOSPHATASE 122 U/L (45-117); BUN 14 mg/dl (7-24); CHLORIDE 99 mmol/L (98-107); CREATININE 0.83 mg/dL (0.70-1.30); POTASSIUM 3.9 mmol/L (3.5-5.1); SGOT/AST 65 IU/L (3-35); SGPT/ALT 82 U/L (12-78); SODIUM 138 mmol/L (136-145); TOTAL PROTEIN 7.8 gm/dL (6.4-8.2)
[2018-08-15 17:38] LABS: ACETAMINOPHEN (TYLENOL) < 5.0 ug/ml (10-30); TROPONIN I < 0.015 ng/ml (<0.045)
[2018-08-15 19:17] LABS: BILIRUBIN NEGATIVE (NEGATIVE); BLOOD NEGATIVE (NEGATIVE); CLARITY CLEAR (CLEAR); COLOR YELLOW (YELLOW); GLUCOSE 3+ (NEGATIVE); KETONE NEGATIVE (NEGATIVE); LEUKO ESTERASE NEGATIVE (NEGATIVE); NITRITE NEGATIVE (NEGATIVE); SPECIFIC GRAVITY <= 1.005 (1.005-1.030); UROBILINOGEN 0.2 E.U./dl (0.2-1.0)
[2018-08-15 19:24] LABS: URINE AMPHETAMINES < 1000 (1000ng/ml); URINE BARBITURATES < 200 (200ng/ml); URINE BENZODIAZEPINES < 200 (200ng/ml); URINE CANNABINOIDS (THC) < 50 (50ng/ml); URINE COCAINE < 300 (300ng/ml); URINE METHADONE < 300 (300ng/ml); URINE OPIATES < 300 (300ng/ml)
[2018-08-15 19:31] LABS: URINE PHENCYCLIDINE < 25 (25ng/ml)
[2018-08-15 21:07] LABS: VENOUS BLOOD GAS O2 SAT 99.2 % (40-85); VENOUS PH 7.382 (7.32-7.43)
[2018-08-16] MEDS ORDERED: TOUJEO SOL300 UNIT/1 SQ (09:53)
[2018-08-16] MEDS ORDERED: ZOLOFT50 MG PO (09:53)
[2018-08-16] MEDS ORDERED: ADMELOG SO100 UNIT/1 SQ (09:54)
[2018-08-16] MEDS ORDERED: STEGLATRO5 MG PO (09:55)
== END 2018-08-15 18:57 | disposition admitted as inpatient to this hospital (09) ==
LOC: ED 16:43
PROVIDERS: Physician Assistant
DX: F10.129 Alcohol abuse with intoxication, unspecified (principal); E11.65 Type 2 diabetes mellitus with hyperglycemia; F19.10 Other psychoactive substance abuse, uncomplicated; F12.90 Cannabis use, unspecified, uncomplicated; F11.10 Opioid abuse, uncomplicated; Z79.4 Long term (current) use of insulin; Z79.899 Other long term (current) drug therapy; Y90.9 Presence of alcohol in blood, level not specified

== ENCOUNTER 2018-08-15 18:04 | Inpatient (IN) | payer OTHER ==
[~2018-08-15] VITALS: Ht 177.8 cm; Wt 88.5 kg
--- NOTE | 2018-08-15 18:45 | NUR ---
A 63yr old male, admitted to [facility], under the services of DANIKA Cheng DO with a diagnosis of Alcoholic intoxication. Chief complaint is "sent her my to stop drinking". Patient arrived via stretcher from ER. Monitor applied. Initial assessment completed. Vital signs taken and recorded. See assessment for past medical history, medications and allergies. Patient and/or family oriented to unit. [facility] visitation policy reviewed. Clothing/patient valuable form completed. DEREK RICHMOND L
[2018-08-15 18:57] VITALS: BP 120/65
--- NOTE | 2018-08-15 19:10 | NUR ---
I TRIED TO CALL [facility] TO GET CURRENT MED LIST BUT THEY CLOSED AT 6PM.
[2018-08-15 20:00] VITALS: BP 120/65
[2018-08-16] VITALS: BP 113/58
--- NOTE | 2018-08-16 04:34 | NUR ---
PATIENT HAS BEEN SLEEPING THROUGH OUT THE NIGHT. PATIENT HAS VOICED NO COMPLAINTS TO ME HAS TO ANY NEW NEEDS OR WANTS AT THIS TIME.
[2018-08-16 05:17] LABS: CREATININE 0.66 mg/dL (0.70-1.30)
[2018-08-16 05:26] LABS: ALBUMIN 3.2 gm/dl (3.1-4.5); ALKALINE PHOSPHATASE 99 U/L (45-117); BUN 13 mg/dl (7-24); CHLORIDE 107 mmol/L (98-107); CREATININE 0.66 mg/dL (0.70-1.30); POTASSIUM 3.5 mmol/L (3.5-5.1); SGOT/AST 52 IU/L (3-35); SGPT/ALT 73 U/L (12-78); SODIUM 143 mmol/L (136-145); TOTAL PROTEIN 6.3 gm/dL (6.4-8.2)
[2018-08-16 06:39] LABS: BASO % 0.8 % (0.0-1.0); EOS # 0.2 10*3/uL (0.0-0.4); EOS % 3.5 % (1.0-4.0); HEMATOCRIT 41.9 % (42.0-52.0); LYMPH # 2.3 10*3/uL (1.3-4.4); MEAN CELL VOLUME 93.7 fl (80.0-94.0); MEAN CORPUSCULAR HGB 31.3 pg (27.0-31.0); MEAN CORPUSCULAR HGB CONC 33.4 g/dl (33.0-37.0); MEAN PLATELET VOLUME 10.6 fl (9.6-12.3); MONO # 0.4 10*3/uL (0.1-1.0); MONO % 8.9 % (3.0-9.0); NEUT # 1.9 10*3/uL (2.3-7.9); NEUT % 38.4 % (47.0-73.0); RED BLOOD COUNT 4.47 10*6/uL (4.50-5.90); RED CELL DISTRI WIDTH 13.5 % (0-14.5); WHITE BLOOD COUNT 4.9 10*3/uL (4.8-10.8)
[2018-08-16 06:43] LABS: PLATELET COUNT AUTOMATED 159 10*3/uL (130-400)
[2018-08-16 08:00] VITALS: BP 146/83
--- NOTE | 2018-08-16 09:00 | NUR ---
DR NELSON IN TO SEE PT.
[2018-08-16] MEDS ORDERED: ZOLOFT50 MG PO (09:53)
[2018-08-16] MEDS ORDERED: TOUJEO SOL300 UNIT/1 SQ (09:53)
[2018-08-16] MEDS ORDERED: ADMELOG SO100 UNIT/1 SQ (09:54)
[2018-08-16] MEDS ORDERED: STEGLATRO5 MG PO (09:55)
--- NOTE | 2018-08-16 09:59 | NUR ---
MED-REC UPDATED AFTER CLARIFYING WITH [facility]. DR VICENTE NOTIFIED.
--- NOTE | 2018-08-16 10:15 | NUR ---
MEDICATED PT PER PRN ORDER WITH ROBAXIN FOR PT'S C/O GENERALIZED "ACHES AND PAINS."
--- NOTE | 2018-08-16 11:00 | NUR ---
PT STATES RELIEF OF EARLIER "ACHES AND PAINS" WITH ROBAXIN.
--- NOTE | 2018-08-16 11:39 | NUR ---
STAFF MEMBER FROM [facility] HERE TO SPEAK WITH PT.
[2018-08-16 12:00] VITALS: BP 145/68
--- NOTE | 2018-08-16 12:01 | NUR ---
[place] STAFF SPOKE WITH PATIENT ABOUT AFTERCARE RESOURCES. PATIENT STATED THAT HE [facility] [place] [facility] AND WANTS TO CONTINUE, HOWEVER HE STATED THAT HE NEEDS MORE. PATIENT IS CURRENTLY TRYING TO GET INTO [facility] [place] TREAT[place]. PATIENT UNDERSTANDS THAT HE MAY BE PUT ON A WAITING LIST, AND HE IS OK WITH THAT, HE REPORTS THAT HE WILL CONTINUE GOING TO THE [facility] [place], ALONG WITH SEEING HIS THERAPIST AT [facility] [place]. [place] STAFF ASKED IF HE NEEDED ANY OTHER RESOURCES, AND HE DECLINED. PATIENT STATED THAT HE WILL BE CALLING THE [facility] TODAY, PATIENT IS WAITING FOR HIS CELL PHONE FROM HIS . PATIENT WILL NOT BE IN [facility]. SUJATA SANCHEZ B.A. DROP HAMMER SETTER UP
--- NOTE | 2018-08-16 14:25 | NUR ---
PT TRANSFERED TO [facility] VIA WC. PT REPORT GIVEN TO RECEIVING NURSE.
--- NOTE | 2018-08-16 15:35 | NUR ---
ROBAXIN 750 MG AND MOTRIN 800 MG GIVEN FOR C/O GENERALIZED PAIN WELL LOWER BACK PAIN,09/23.
[2018-08-16 16:00] VITALS: BP 162/88
[2018-08-16 20:00] VITALS: BP 149/76
--- NOTE | 2018-08-16 20:38 | NUR ---
NOTIFIED PHYSICIAN OF PT BLOOD SUGAR OF 340.
--- NOTE | 2018-08-16 21:27 | NUR ---
PT C/O RESTLESSNESS/INSOMNIA AND ANXIETY. TRAZODONE AND VISTARIL GIVEN AT THIS TIME. WILL MONITOR FOR EFFECTIVENESS. PT STATING NO OTHER COMPLAINTS AT THIS TIME. CALL LIGHT IN REACH.
--- NOTE | 2018-08-16 22:37 | NUR ---
TRAZODONE AND VISTARIL EFFECTIVE PER PT.
[2018-08-17] VITALS: BP 124/69
[2018-08-17 12:00] VITALS: BP 124/57
[2018-08-17 16:00] VITALS: BP 156/72
[2018-08-17 20:30] VITALS: BP 122/68
--- NOTE | 2018-08-17 21:05 | NUR ---
PT C/O MUSCLE ACHES, INSOMNIA, AND ANXIETY. ROBAXIN, TRAZODONE, AND VISTARIL GIVEN AT THIS TIME. WILL MONITOR FOR EFFECTIVENESS. CALL LIGHT IN REACH.
--- NOTE | 2018-08-17 22:00 | NUR ---
Pt. blood sugar result 379. Covered with 20 units of Regular Insulin as ordered. PHYSICIAN NOTIFIED OF CRITICALLY HIGH BLOOD SUGAR, NO OTHER ORDERS RECEIVED AT THIS TIME. TIFFANY SANDOVAL
--- NOTE | 2018-08-17 22:05 | NUR ---
PRN MEDICATIONS EFFECTIVE PER PT.
[2018-08-18] VITALS: BP 138/69
[2018-08-18 12:00] VITALS: BP 170/88
[2018-08-18 16:00] VITALS: BP 152/76
[2018-08-18 20:00] VITALS: BP 165/95
[2018-08-19] VITALS: BP 137/79
--- NOTE | 2018-08-19 02:54 | NUR ---
24 HOUR CHART CHECK COMPLETED.
[2018-08-19 12:00] VITALS: BP 156/87
--- NOTE | 2018-08-19 12:52 | NUR ---
Discharge instructions reviewed with patient/family. Patient receptive and verbalizes understanding. Follow-up care arranged. Written instructions given to patient/family. GIANNI WASHINGTON
--- NOTE | 2018-08-19 13:44 | NUR ---
PT DISCHARGED AT THIS TIME TO HOME WITH .
== END 2018-08-19 12:52 | disposition home or self-care (01) | DRG 897 ==
LOC: ICCU 18:04 → EDHOLD 18:04 → ICCU 18:23 → 5E 08-16 14:08
PROVIDERS: Family Medicine; Internal Medicine; ADMIT Internal Medicine
DX: F10.239 Alcohol dependence with withdrawal, unspecified (principal); E87.2 Acidosis; F19.10 Other psychoactive substance abuse, uncomplicated; R74.0 Nonspecific elevation of levels of transaminase and lactic acid dehydrogenase [LDH]; K21.9 Gastro-esophageal reflux disease without esophagitis; F32.9 Major depressive disorder, single episode, unspecified; E11.40 Type 2 diabetes mellitus with diabetic neuropathy, unspecified; F41.9 Anxiety disorder, unspecified; E55.9 Vitamin D deficiency, unspecified; I10 Essential (primary) hypertension; E78.5 Hyperlipidemia, unspecified; E11.65 Type 2 diabetes mellitus with hyperglycemia; Z79.4 Long term (current) use of insulin; Z82.49 Family history of ischemic heart disease and other diseases of the circulatory system; Z83.3 Family history of diabetes mellitus; Z79.899 Other long term (current) drug therapy

== ENCOUNTER → 2020-04-12 | Outpatient (CLI) | payer OTHER ==
[~2020-04-12] MED LIST changes: +ADMELOG SO100 UNIT/1 SQ; +STEGLATRO5 MG PO; +TOUJEO SOL300 UNIT/1 SQ; +ZOLOFT50 MG PO
== END | disposition home or self-care (01) ==
LOC: COVID19 10:15
PROVIDERS: ATTEND Family Medicine
DX: U07.1 COVID-19 (principal)

== ENCOUNTER → 2022-08-01 | Outpatient (CLI) | payer OTHER ==
[~2022-08-01] MED LIST changes: +****K-Phos500 MG PO; +DOXYCYCLINE HY100 M3 PO; +INSULIN GL100 UNIT/5 SC; +K-TAB20 MEQ PO; +MAGNESIUM OXID400 MG PO; +OXYCONTIN10 M1 PO
[2022-08-01 12:50] LABS: BASO # 0.1 10*3/uL (0.0-0.1); BASO % 0.9 % (0.0-1.0); EOS # 0.1 10*3/uL (0.0-0.4); EOS % 1.2 % (1.0-4.0); HEMATOCRIT 31.8 % (42.0-52.0); LYMPH # 1.3 10*3/uL (1.3-4.4); LYMPH % 11.5 % (27.0-41.0); MEAN CELL VOLUME 87.1 fl (80.0-94.0); MEAN CORPUSCULAR HGB 26.8 pg (27.0-31.0); MEAN CORPUSCULAR HGB CONC 30.8 g/dl (33.0-37.0); MEAN PLATELET VOLUME 10.1 fl (9.6-12.3); MONO % 8.6 % (3.0-9.0); NEUT # 8.7 10*3/uL (2.3-7.9); NEUT % 77.4 % (47.0-73.0); PLATELET COUNT AUTOMATED 342 10*3/uL (130-400); RED BLOOD COUNT 3.65 10*6/uL (4.50-5.90); RED CELL DISTRI WIDTH 27.4 % (0-14.5); WHITE BLOOD COUNT 11.2 10*3/uL (4.8-10.8)
[2022-08-01 13:34] LABS: POTASSIUM 4.4 mmol/L (3.4-5.1)
[2022-08-01 13:37] LABS: VITAMIN D, 25-HYDROXY 32.8 ng/mL (30-100)
== END | disposition home or self-care (01) ==
LOC: LAB 12:14
PROVIDERS: ATTEND Internal Medicine Nephrology
DX: N17.9 Acute kidney failure, unspecified (principal); N25.81 Secondary hyperparathyroidism of renal origin; D64.9 Anemia, unspecified; Z79.899 Other long term (current) drug therapy

== ENCOUNTER 2022-08-24 12:45 | Emergency (ER) | payer OTHER | END 2022-08-24 14:02 | disposition home or self-care (01) | LOC: ED 12:45 | DX: R18.8 Other ascites (principal); I10 Essential (primary) hypertension; K21.9 Gastro-esophageal reflux disease without esophagitis; E11.9 Type 2 diabetes mellitus without complications; F32.A Depression, unspecified; Z98.890 Other specified postprocedural states; F10.10 Alcohol abuse, uncomplicated ==